=== PATIENT | female | born 2000 | race Two or more races ===

== ENCOUNTER 2021-12-03 09:17 | Outpatient (RCR) | payer OTHER | END 2021-12-05 | LOC: M ST 09:17 | PROVIDERS: ATTEND Family Medicine | DX: R63.39 Other feeding difficulties (principal) ==

== ENCOUNTER 2021-12-10 09:46 | Outpatient (RCR) | payer OTHER | END 2022-01-05 | LOC: M ST 09:46 | PROVIDERS: ATTEND Family Medicine | DX: R63.30 Feeding difficulties, unspecified (principal) ==